=== PATIENT | male | born 1985 | race Caucasian/White ===

== ENCOUNTER 2021-03-23 22:15 | Emergency (ER) | payer OTHER ==
[2021-03-23 22:21] VITALS: BMI 30.4
[2021-03-23] MEDS ORDERED: ACETAMINOPHEN 325 MG TABLET (FP) PO ONE (23:07)
[2021-03-23] MEDS ORDERED: ACETAMINOPHEN 325 MG TABLET (FP) ONE (23:15)
[2021-03-23 23:50] LABS: BASO % 0.5 % (0-2.0); HEMATOCRIT 45.5 % (35.4-49); HEMOGLOBIN 15.5 GM/dL (11.7-16.9); LYMPH % 29.5 % (8-40); MCH 26.6 pg (25.7-33.7); MEAN CELL VOLUME 78.1 fl (80-96); MEAN PLT VOLUME 7.4 fl (7.5-11.1); MONO % 8.1 % (3.8-10.2); NEUT % 61.9 % (42.8-82.8); PLATELET COUNT 155 10^3/uL (134-434); RBC 5.82 M/mm3 (4.00-5.60); RDW 14.4 % (11.9-15.9); WHITE BLOOD COUNT 3.2 K/mm3 (4.0-10.0)
[2021-03-23 23:57] LABS: INR 1.23 (0.83-1.09); PROTHROMBIN TIME (PATIENT) 14.8 SEC (9.7-13.0)
[2021-03-24] LABS: ACTIVATED PTT 31.2 SECONDS (25.2-36.5)
[2021-03-24 00:13] LABS: CALCIUM 7.8 mg/dL (8.5-10.1)
[2021-03-24 00:14] LABS: ALBUMIN 3.5 g/dl (3.4-5.0); BLOOD UREA NITROGEN 10.3 mg/dL (7-18)
[2021-03-24 00:17] LABS: BILIRUBIN,DIRECT 0.1 mg/dL (0.0-0.2); CREATININE 0.9 mg/dL (0.55-1.3)
[2021-03-24 00:19] LABS: BILIRUBIN,TOTAL 0.3 mg/dL (0.2-1); TOT PROT 7.6 g/dl (6.4-8.2)
[2021-03-24 00:48] VITALS: BP 111/65; PULSE 94; TEMP 99.5
== END 2021-03-24 01:43 | disposition home or self-care (01) ==
LOC: JER 22:15
DX: U07.1 COVID-19 (principal)
CPT/HCPCS: 36415; 71045-TC-FY; 80053; 82248; 82550; 82728; 83615; 84484; 85025; 85610; 85730; 86140; 93005; 93010; 99285-25; C9803; U0003; U0005